=== PATIENT | male | born 1970 | race African-American/Black ===

== ENCOUNTER 2019-07-10 08:17 | Emergency (ER) | payer SELFPAY ==
[~2019-07-10] VITALS: Ht 177.8 cm; Wt 109.0 kg
[2019-07-10 09:36] VITALS: BP 144/90
[2019-07-10 09:45] LABS: BASOPHILS % 0.7 % (0.0-2.0); EOSINOPHILS % 3.8 % (0.0-5.0); HEMATOCRIT. 39.8 % (42.0-52.0); HEMOGLOBIN. 13.9 g/dL (14.0-18.0); LYMPHOCYTES % 31.8 % (20.0-50.0); MEAN CORPUSCULAR HEMOGLOBIN 30.1 pg (28.0-32.0); MEAN CORPUSCULAR VOLUME 86.3 fL (80.0-94.0); MEAN PLATELET VOLUME 8.4 fl (7.4-10.4); MONOCYTES % 6.5 % (2.0-8.0); NEUTROPHILS % 57.2 % (40.0-76.0); PLATELET 189 x1000/uL (130-400); RED BLOOD CELL COUNT 4.61 mill/uL (4.7-6.1); RED CELL DISTRIBUTION WIDTH 13.6 % (11.6-14.6)
[2019-07-10] MEDS: ONDANSETRON HCL 4MG/2ML INJ IV STA (09:48)
[2019-07-10] MEDS: KETOROLAC 30MG/ML VIAL IV STA (09:49)
[2019-07-10 09:53] LABS: CHLORIDE 107 mEq/L (98-107)
[2019-07-10 10:10] LABS: CLARITY URINE CLEAR (CLEAR); COLOR URINE YELLOW (YELLOW); KETONES URINE NEGATIVE (NEGATIVE); LEUKOCYTE ESTERASE URINE NEGATIVE (NEGATIVE); NITRITE URINE NEGATIVE (NEGATIVE); OCCULT BLOOD URINE NEGATIVE (NEGATIVE); PROTEIN URINE NEGATIVE (NEGATIVE); SPECIFIC GRAVITY URINE 1.007 (1.005-1.030); UROBILINOGEN URINE 0.2 E.U./dL (0.2-1.0)
== END 2019-07-10 12:30 | disposition home or self-care (01) ==
LOC: ER 08:17
DX: R10.13 Epigastric pain (principal); R11.0 Nausea; F17.200 Nicotine dependence, unspecified, uncomplicated; Z87.19 Personal history of other diseases of the digestive system
CPT/HCPCS: 36415; 71045; 76705; 80053; 81003; 83690; 85025; 93005; 96374; 96375; 99284; J1885; J2405; Z7610

== ENCOUNTER 2023-04-25 13:31 | Emergency (ER) | payer BC, OTHER ==
[~2023-04-25] VITALS: Ht 182.9 cm; Wt 99.0 kg
[2023-04-25 13:38] VITALS: TEMP 97.9; O2SAT 100
[2023-04-25] MEDS ORDERED: KETOROLAC 30MG/ML VIAL IV STA (15:04)
[2023-04-25 15:31] LABS: BASOPHILS % 0.5 % (0.0-2.0); EOSINOPHILS % 1.6 % (0.0-5.0); HEMATOCRIT. 42.4 % (42.0-52.0); HEMOGLOBIN. 14.2 g/dL (14.0-18.0); LYMPHOCYTES % 24.7 % (20.0-50.0); MEAN CORPUSCULAR HEMOGLOBIN 29.1 pg (28.0-32.0); MEAN CORPUSCULAR HGB CONC 33.5 g/dL (31.0-37.0); MEAN CORPUSCULAR VOLUME 86.9 fL (80.0-94.0); MONOCYTES % 6.8 % (2.0-8.0); NEUTROPHILS % 66.4 % (40.0-76.0); PLATELET 170 x1000/uL (130-400); RED BLOOD CELL COUNT 4.88 mill/uL (4.7-6.1); RED CELL DISTRIBUTION WIDTH 13.1 % (11.6-14.6); WHITE BLOOD COUNT 7.3 x1000/uL (4.5-11.0)
[2023-04-25 15:32] LABS: CHLORIDE 105 mEq/L (98-107); INDEX HEMOLYSI 1 (1-3); INDEX ICTERIC 1 (1-4); INDEX LIPEMIC 1 (1-3); POTASSIUM 3.4 mEq/L (3.5-5.1); SODIUM 138 mEq/L (136-145)
[2023-04-25 15:41] LABS: ALANINE AMINOTRANSFERASE 15 IU/L (13-61); ALBUMIN 3.9 g/dL (3.4-5.0); ASPARTATE AMINOTRANSFERASE 8 IU/L (15-37); BILIRUBIN TOTAL 0.5 mg/dL (0.1-1.0); CALCIUM 8.9 mg/dL (8.5-10.1); CARBON DIOXIDE 27 mEq/L (21-32); CREATININE 0.5 mg/dL (0.6-1.3); GLUCOSE 229 mg/dL (70-105); UREA NITROGEN BLOOD 9 mg/dL (7-21)
[2023-04-25] MEDS ORDERED: KETOROLAC 15MG/ML VIAL IV NR (17:30)
[2023-04-25 17:53] VITALS: BP 147/90; PULSE 96; RESP 18
[2023-04-25] MEDS ORDERED: VANCOMYCIN 1G PREMIX 200 ML IV SCH (19:00)
[2023-04-25] MEDS ORDERED: PIPERACILLIN/TAZ 3.375G PREMIX 50 ML IV NR (19:00)
[2023-04-25] MEDS ORDERED: PIPERACILLIN/TAZOBACTAM 3.375GM/50ML PREMIX IV ONE (19:00)
[2023-04-25] MEDS ORDERED: OFLO5DRO4 RIGHT EAR (19:02)
[2023-04-25] MEDS ORDERED: AMOX1TAB16 MT (19:03)
== END 2023-04-25 19:31 | disposition home or self-care (01) ==
LOC: ER 13:39
DX: H60.91 Unspecified otitis externa, right ear (principal); H66.92 Otitis media, unspecified, left ear; R73.9 Hyperglycemia, unspecified
CPT/HCPCS: 80053; 85025; 36415; 70487; 96374; 99285; J1885; Z7610 ×2